=== PATIENT | female | born 1930 | race African-American/Black ===

== ENCOUNTER 2020-06-04 23:30 | Observation (INO) | payer MEDICARE ==
[2020-06-05 00:27] LABS: ABSOLUTE BASOPHILS # (AUTO) 0.1 10^3/uL (0.0-0.2); ABSOLUTE EOSINOPHILS # (AUTO) 0.1 10^3/uL (0.0-0.6); ABSOLUTE LYMPHOCYTES (AUTO) 1.4 10^3/uL (0.5-4.7); ABSOLUTE MONOCYTES (AUTO) 0.7 10^3/uL (0.1-1.4); ABSOLUTE NEUT (AUTO) 4.2 10^3/uL (1.7-8.2); BASOPHILS % (AUTO) 1.3 % (0-2); HEMATOCRIT 38.5 % (36.0-47.0); HEMOGLOBIN 12.4 g/dL (12.0-15.5); LYMPHOCYTES % (AUTO) 22.2 % (13-45); MEAN CORPUSCULAR HEMOGLOBIN 27.1 pg (27.0-33.4); MEAN CORPUSCULAR HGB CONC 32.3 g/dL (32.0-36.0); MEAN CORPUSCULAR VOLUME 84 fl (80-97); MONOCYTES % (AUTO) 10.3 % (3-13); PLATELET COUNT 348 10^3/uL (150-450); RED BLOOD COUNT 4.59 10^6/uL (3.72-5.28); RED CELL DISTRIBUTION WIDTH 13.9 % (11.5-14.0); SEGMENTED NEUTROPHILS % (AUTO) 65.2 % (42-78); TOTAL CELLS COUNTED % (AUTO) 100 %; WHITE BLOOD COUNT 6.4 10^3/uL (4.0-10.5)
[2020-06-05 00:48] LABS: ALBUMIN 3.6 g/dL (3.5-5.0); ALKALINE PHOSPHATASE 75 U/L (38-126); ANION GAP 11 (5-19); ASPARTATE AMINO TRANSFERASE 21 U/L (14-36); BILIRUBIN,DIRECT 0.4 mg/dL (0.0-0.4); BILIRUBIN,TOTAL 0.5 mg/dL (0.2-1.3); BLOOD UREA NITROGEN 32 mg/dL (7-20); CALCIUM 9.5 mg/dL (8.4-10.2); CARBON DIOXIDE 29 mmol/L (22-30); CHLORIDE 105 mmol/L (98-107); GLUCOSE 104 mg/dL (75-110); POTASSIUM 4.4 mmol/L (3.6-5.0); TOTAL PROTEIN 6.7 g/dL (6.3-8.2)
[2020-06-05 00:49] LABS: ALCOHOL < 10 mg/dL (NONE DETECTED)
[2020-06-05] MEDS ORDERED: NORMAL SALINE 1000 ML 1,000 ML IV ONE (01:16)
--- NOTE | 2020-06-05 01:32 | RADIOLOGY REPORT (SQ) ---
EXAM DESCRIPTION: CT HEAD WITHOUT IV CONTRAST COMPLETED DATE/TME: 06/05/2020 00:26 CLINICAL HISTORY: 89 years, Female, AMS COMPARISON: None. TECHNIQUE: Axial CT images of the brain were obtained without contrast. Sagittal and coronal reformats were performed. [facility] 945 Images stored on PACS. All CT scanners at this facility use dose modulation, iterative reconstruction, and/or weight based dosing when appropriate to reduce radiation dose to as low as reasonably achievable (ALARA). [facility]: Dose Right [facility]: CareDose [facility]: Dose Right [facility]: Teradose 4D [facility]: [employer] Technologies LIMITATIONS: None. FINDINGS: There is no acute cortical infarct, hemorrhage, mass, edema, hydrocephalus, or extra-axial fluid collection. There is diffuse cerebral atrophy with periventricular and deep white matter chronic microvascular changes. Calcifications of the bilateral basal ganglia and dentate nuclei are noted. The paranasal sinuses and mastoid air cells are clear. There is no acute fracture. IMPRESSION: No acute intracranial abnormality. 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 TECHNICAL DOCUMENTATION: Quality ID # 436: Final reports with documentation of one or more dose reduction techniques (e.g., Automated exposure control, adjustment of the mA and/or kV according to patient size, use of iterative reconstruction technique) copyright 2011 [employer]- All Rights Reserved
--- NOTE | 2020-06-05 01:34 | RADIOLOGY REPORT (SQ) ---
EXAM DESCRIPTION: XR CHEST 1 VIEW COMPLETED DATE/TME: 06/05/2020 00:26 CLINICAL HISTORY: 89 years, Female, AMS COMPARISON: None. NUMBER OF VIEWS: TECHNIQUE: LIMITATIONS: None. FINDINGS: No evidence of pulmonary infiltrate or pleural effusion. The heart and mediastinum are unremarkable. Pulmonary vascularity appears normal. There are atherosclerotic changes and tortuosity of the thoracic aorta. There is a left-sided pacemaker. IMPRESSION: No acute finding. copyright 2010 [employer]- All Rights Reserved
--- NOTE | 2020-06-05 01:44 | ER Document Report ---
ED General - General Chief Complaint: Altered Mental Status Stated Complaint: AMS Time Seen by Provider: 06/05/20 00:14 - HPI Onset: Just prior to arrival Onset/Duration: Sudden Associated symptoms: Vomiting Exacerbated by: Denies Relieved by: Denies Notes: Patient is an 89-year-old female with a past medical history of dementia who presents for altered mental status. She is with her iiftwqdn-mr-alu. Twoxrbvi-ai-mnx provides the history as patient has dementia. She states that patient was watching TV. They went to get her up and found that she was unresponsive. Patient then had an episode of vomiting. EMS arrived and patient was acting appropriately. In the ambulance, patient again had an episode of unresponsiveness with a blood pressure in the 70s. They gave her a 300 cc bolus of fluid and she improved. She denies any history of illnesses. No cough or fevers. - Related Data Allergies/Adverse Reactions: statins Allergy (Uncoded 06/05/20 01:52) Home Medications: ASA, Atenolol, Loratadine, NTG, Ezetimibe Past Medical History - General Information source: Patient - Social History Smoking Status: Never Smoker Family History: Reviewed & Not Pertinent Patient has homicidal ideation: No - Past Medical History Cardiac Medical History: Reports: Hx Hypercholesterolemia, Hx Hypertension Past Surgical History: Reports: Hx Cardiac Surgery - pacemaker Review of Systems - Review of Systems -: Yes ROS unobtainable due to patient's medical condition Constitutional: denies: Chills, Fever, Weakness Respiratory: denies: Cough Gastrointestinal: Vomiting. denies: Abdominal pain Genitourinary: No symptoms reported Skin: No symptoms reported Physical Exam - Vital signs Vitals: Temp Pulse Resp BP Pulse Ox 97.6 F 76 18 161/60 H 98 06/04/20 23:50 06/04/20 23:50 06/04/20 23:50 06/04/20 23:50 06/04/20 23:50 - Notes Notes: VITAL SIGNS: Within normal limits. GENERAL: No acute distress, non-toxic appearance. HEAD: Normal with no signs of head trauma. EYES: EOMI, conjunctiva normal, no discharge. EARS: Hearing grossly intact. NOSE: Normal. NECK: Normal range of motion, no tenderness, supple, no lymphadenopathy, No adenopathy, no JVD. CHEST: Clear breath sounds bilaterally. No wheezes, rales, or rhonchi. CARDIAC: Regular rate and rhythm. S1 and S2, without murmurs, gallops, or rubs. VASCULAR: No Edema. Peripheral pulses normal and equal in all extremities. ABDOMEN: Normal and soft with no tenderness, no masses or pulsatile masses. GENITOURINARY: Normal, No tenderness LYMPATHTIC: No lymphadenopathy noted. MUSCULOSKELETAL: Good range of motion of all major joints. Extremities without clubbing, cyanosis or edema. NEUROLOGICAL: Baseline dementia. No focal sensory or strength deficits. Speech normal. Follows commands appropriately. PSYCHIATRIC: Normal Affect, judgement and mood. SKIN: Normal appearance with no rashes or lesions. Course - Re-evaluation Re-evalutation: 06/05/20 02:43 Patient had 2 episodes of unresponsiveness tonight. Her work-up here so far is unremarkable. Urinalysis is pending. Patient has been appropriate in the ED with normal blood pressures. However, I am concerned that she had these 2 episodes of unresponsiveness. I discussed this with the family and they are also concerned about taking her home. I will discuss with hospitalist for observation and possible further work-up. - Vital Signs Vital signs: Temp Pulse Resp BP Pulse Ox 97.3 F 66 17 192/61 H 99 06/06/20 00:23 06/06/20 01:58 06/06/20 00:23 06/06/20 00:23 06/06/20 00:23 - Laboratory Result Diagrams: 06/04/20 23:50 06/04/20 23:50 Laboratory results interpreted by me: 06/04/20 06/05/20 23:50 02:10 BUN 32 H Creatinine 1.66 H Est GFR ( Amer) 35 L Est GFR (MDRD) Non-Af 29 L Urine Urobilinogen 4.0 H Ur Leukocyte Esterase SMALL H - Diagnostic Test Radiology reviewed: Image reviewed, Reports reviewed - EKG Interpretation by Me Additional EKG results interpreted by me: 06/05/20 01:50 Atrial paced complexes. QTc 444. No acute ST changes. No previous EKG available for comparison. Discharge - Discharge Clinical Impression: Transient hypotension Altered mental status Qualifiers: Altered mental status type: unspecified Qualified Code(s): R41.82 - Altered mental status, unspecified Condition: Stable Disposition: ADMITTED OBSERVATION Admitting Provider: [facility] Unit Admitted: Medical Floor
[2020-06-05 02:45] LABS: URINE AMPHETAMINES SCREEN NEGATIVE; URINE BARBITURATES SCREEN NEGATIVE; URINE BENZODIAZEPINES SCREEN NEGATIVE; URINE COCAINE SCREEN NEGATIVE; URINE MARIJUANA (THC) SCREEN NEGATIVE; URINE METHADONE SCREEN NEGATIVE; URINE PHENCYCLIDINE SCREEN NEGATIVE
[2020-06-05 02:55] LABS: APPEARANCE,URINE CLOUDY; BILIRUBIN,URINE NEGATIVE (NEGATIVE); COLOR,URINE AMBER; GLUCOSE, URINE NEGATIVE (NEGATIVE); KETONES,URINE NEGATIVE (NEGATIVE); LEUKOCYTE ESTERASE,URINE SMALL (NEGATIVE); NITRITE,URINE NEGATIVE (NEGATIVE); PROTEIN,URINE NEGATIVE (NEGATIVE); URINE SPECIFIC GRAVITY 1.014
[2020-06-05] MEDS ORDERED: ACETAMINOPHEN 325 MG TABLET PO PRN (04:06)
[2020-06-05] MEDS ORDERED: DEXTROSE 5%-LACTATED RINGERS 1,000 ML IV PRN (04:06)
--- NOTE | 2020-06-05 06:09 | PDOC H&P ---
History of Present Illness Admission Date/PCP: 06/05/20 03:33 NAINA VASQUEZ MD Patient complains of: Hypertension, unresponsiveness History of Present Illness: MYESHA JIMENEZ is a 89 year old female, past medical history of pacemaker insertion 8 years prior, hyperlipidemia, dementia who was sent to the ED due to hypotension and episode of unresponsiveness. Patient was apparently well until about 6 hours prior to admission when she was noted to be unresponsive while sitting on her recliner. The patient and her nkfeeoee-lj-ujy was watching TV when her lsktsxsd-ny-hgl noticed that she was slumped to her side, when she attempted to wake her up she was unresponsive not opening her eyes. But she was breathing spontaneously. The daughter did not mention any signs of seizures like bowel or bladder incontinence, shaking or stiffness of extremities. EMS was called and by the time they saw her she was already awake, had one episode of vomiting. Per EMS her blood pressure was low and she was given IV fluids. In the ambulance patient again had an episode of unresponsiveness with blood pressure of 70 which improved with 300 cc bolus of IV fluids. Her sgeqmpci-tf-sdl denies any recent illness, no diarrhea, no nausea vomiting ,no painful urination, no fever In the ED, her blood pressure was noted to be 138/51, heart rate of 66. According to her npitpweo-fo-njr her mental status is back at her baseline. EKG showed paced rhythm, troponins negative. CBC and CMP unremarkable. She was then admitted for observation for further evaluation. . Past Medical History Cardiac Medical History: Reports: Hyperlipidema, Hypertension Pulmonary Medical History: Reports: None EENT Medical History: Reports: None Neurological Medical History: Reports: None Neurological History Note: dementia Endocrine Medical History: Reports: None Renal/ Medical History: Reports: None Malignancy Medical History: Reports: None GI Medical History: Reports: None Musculoskeltal Medical History: Reports: None Skin Medical History: Reports: None Psychiatric Medical History: Reports: None Traumatic Medical History: Reports: None Hematology: Reports: None Social History Information Source: Relative Lives with: Family Smoking Status: Never Smoker - Advance Directive Resuscitation Status: Full Code Family History Family History: Reviewed & Not Pertinent Parental Family History Reviewed: Yes Children Family History Reviewed: Yes Sibling(s) Family History Reviewed.: Yes Medication/Allergy Home Medications: Aspirin 81 mg PO DAILY 06/05/20 Atenolol [Tenormin] 50 mg PO DAILY 06/05/20 Ezetimibe 10 mg PO DAILY 06/05/20 Loratadine [Allergy Relief] 10 mg PO DAILY 06/05/20 Allergies/Adverse Reactions: statins Allergy (Uncoded 06/05/20 01:52) Review of Systems Constitutional: PRESENT: as per HPI Eyes: ABSENT: visual disturbances Nose, Mouth, and Throat: ABSENT: headache(s), sore throat Cardiovascular: ABSENT: chest pain, dyspnea on exertion, orthropnea, pal pitations Gastrointestinal: ABSENT: abdominal pain, diarrhea, hematemesis, melena, nausea Musculoskeletal: ABSENT: joint swelling Neurological: PRESENT: confusion. ABSENT: abnormal movements, focal weakness, frequent falls Psychiatric: ABSENT: depression, hallucinations Physical Exam Vital Signs: Temp Pulse Resp BP Pulse Ox 98 F 76 16 156/48 H 100 06/05/20 04:10 06/04/20 23:50 06/05/20 04:01 06/05/20 04:01 06/05/20 04:01 Intake & Output 06/03/20 06/04/20 06/05/20 06:59 06:59 06:59 Intake Total 1000 Balance 1000 Weight 68.039 kg General appearance: PRESENT: no acute distress, cooperative Head exam: PRESENT: atraumatic, normocephalic Eye exam: PRESENT: EOMI, PERRLA. ABSENT: nystagmus Mouth exam: PRESENT: moist Neck exam: PRESENT: full ROM Respiratory exam: PRESENT: clear to auscultation kenneth, symmetrical, unlabored. ABSENT: rales, tachypnea Cardiovascular exam: PRESENT: RRR, +S1, +S2 Pulses: PRESENT: normal radial pulses GI/Abdominal exam: PRESENT: normal bowel sounds, soft. ABSENT: rebound, tenderness Extremities exam: ABSENT: joint swelling, +2 edema Musculoskeletal exam: PRESENT: full ROM Neurological exam: PRESENT: alert, awake, oriented to person, other - Baseline dementia Psychiatric exam: PRESENT: normal mood Results Laboratory Results: 06/04/20 23:50 06/04/20 23:50 06/04/20 06/04/20 06/05/20 23:50 23:50 02:10 WBC 6.4 RBC 4.59 Hgb 12.4 Hct 38.5 MCV 84 MCH 27.1 MCHC 32.3 RDW 13.9 Plt Count 348 Seg Neutrophils % 65.2 Sodium 144.7 Potassium 4.4 Chloride 105 Carbon Dioxide 29 Anion Gap 11 BUN 32 H Creatinine 1.66 H Est GFR ( Amer) 35 L Glucose 104 Calcium 9.5 Magnesium 1.7 Total Bilirubin 0.5 AST 21 Alkaline Phosphatase 75 Total Protein 6.7 Albumin 3.6 Urine Color SAMIRA Urine Appearance CLOUDY Urine pH 5.0 Ur Specific [employer] 1.014 Urine Protein NEGATIVE Urine Glucose (UA) NEGATIVE Urine Ketones NEGATIVE Urine Blood NEGATIVE Urine Nitrite NEGATIVE Ur Leukocyte Esterase SMALL H Urine WBC (Auto) 34 Urine RBC (Auto) 1 06/04/20 23:50 Troponin I < 0.012 Impressions: Chest X-Ray 06/05/20 00:26 IMPRESSION: No acute finding. copyright 2010 [employer]- All Rights Reserved Head CT 06/05/20 00:26 IMPRESSION: No acute intracranial abnormality. 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 TECHNICAL DOCUMENTATION: Quality ID # 436: Final reports with documentation of one or more dose reduction techniques (e.g., Automated exposure control, adjustment of the mA and/or kV according to patient size, use of iterative reconstruction technique) copyright 2010 [employer]- All Rights Reserved Assessment and Plan - Diagnosis (1) Transient hypotension Is this a current diagnosis for this admission?: Yes Plan: -By EMS at home and during transit, per record systolic of 70s, one episode of vomiting -Blood pressure in the ED upon arrival 138/51 status post 1 L of normal saline -Likely from dehydration, or cardiac in origin (she has a pacemaker) -Less likely septic since she is not tachycardic not tachypneic her mental status is back to her baseline WBC count normal -will admit for observation and telemetry -Ultrasound carotid, venous Doppler for DVT rule out. -will need pacemaker interrogation (2) Acute encephalopathy Is this a current diagnosis for this admission?: Yes Plan: -Had one episode of unresponsiveness at home -No overt signs of seizures, blood glucose was normal per EMS -CBC and CMP unremarkable -CT head normal -We will monitor for recurrence -admit for observation (3) BILLY (acute kidney injury) Is this a current diagnosis for this admission?: Yes Plan: - crea 1.66, unknown baseline -Per rillgejd-qh-gji she has not been drinking that well recently -We will repeat CMP in the morning -Continue IV fluids (4) Dementia Qualifiers: Dementia type: unspecified type Dementia behavioral disturbance: without behavioral disturbance Qualified Code(s): F03.90 - Unspecified dementia without behavioral disturbance Is this a current diagnosis for this admission?: Yes Plan: -Has history of dementia oriented to self -Frequent reorientation, fall precaution (5) Pacemaker Is this a current diagnosis for this admission?: Yes Plan: - PM placed about 8 years ago unknown reason -EKG paced rhythm - she is on aspirin and atenolol unclear if she has a history of CAD (6) HLD (hyperlipidemia) Qualifiers: Hyperlipidemia type: unspecified Qualified Code(s): E78.5 - Hyperlipidemia, unspecified Is this a current diagnosis for this admission?: Yes Plan: - on ezetemibe - Plan Summary Summary: Patient is an 89-year-old female with history of pacemaker insertion dementia and hyperlipidemia who was sent to the ED due to episode of unresponsiveness and hypotension at home. Work-up in the ED has been unremarkable so far with normal CBC mildly elevated creatinine and no UTI. Will admit for observation and telemetry, ultrasound carotid venous Doppler of lower extremity ordered - Time Time Spent with patient: 35 or more minutes Medications reviewed and adjusted accordingly: Yes Anticipated Discharge Disposition: Home, Self Care Anticipated Discharge Timeframe: within 48 hours
[2020-06-05] MEDS ORDERED: EZETIMIBE 10 MG TABLET PO SCH (10:00)
[2020-06-05] MEDS ORDERED: ASPIRIN 81 MG TABLET, CHEWABLE PO SCH (10:00)
[2020-06-05] MEDS ORDERED: ATENOLOL 50 MG TABLET PO SCH (10:00)
[2020-06-05] MEDS: HEPARIN SOD (PORCINE) 5,000 UNIT/ML 1 ML VIAL SUBCUT SCH ×3 (11:21→22:38)
--- NOTE | 2020-06-05 12:38 | RADIOLOGY REPORT (SQ) ---
EXAM DESCRIPTION: VENOUS BILATERAL LOWER IMAGES COMPLETED DATE/TIME: 06/05/2020 11:50 am REASON FOR STUDY: r/o DVT COMPARISON: None. TECHNIQUE: Dynamic and static kingsley scale and color images acquired of both lower extremity venous sy stems. Selected spectral images acquired with additional compression and augmentation maneuvers. Imag es stored on PACS. LIMITATIONS: The examination is somewhat limited. The patient was uncooperative during the examinat ion. FINDINGS: RIGHT LEG COMMON FEMORAL AND FEMORAL: Normal phasicity, compression and augmentation. No visualized echogenic m aterial on kingsley scale. No defects on color images. POPLITEAL: Normal compression and augmentation. No visualized echogenic material on kingsley scale. No de fects on color images. CALF VESSELS: Normal compression and augmentation. No visualized echogenic material on kingsley scale. No defects on color image. GSV AND SSV: Normal compression. No visualized echogenic material on kingsley scale. No defects on color images. ANY DEEP VENOUS INSUFFICIENCY: Not evaluated. ANY EVIDENCE OF POPLITEAL CYST: No. OTHER: No other significant finding. LEFT LEG COMMON FEMORAL AND FEMORAL: Normal phasicity, compression and augmentation. No visualized echogenic m aterial on kingsley scale. No defects on color images. POPLITEAL: Normal compression and augmentation. No visualized echogenic material on kingsley scale. No de fects on color images. CALF VESSELS: Normal compression and augmentation. No visualized echogenic material on kingsley scale. No defects on color images. GSV AND SSV: Normal compression. No visualized echogenic material on kingsley scale. No defects on color images. ANY DEEP VENOUS INSUFFICIENCY: Not evaluated. ANY EVIDENCE POPLITEAL CYST: No. OTHER: No other significant finding. IMPRESSION: 1. NO EVIDENCE DVT OR SVT IN EITHER LEG. TECHNICAL DOCUMENTATION: JOB ID: [id number] 2010 [employer]- All Rights Reserved Reading location - IP/workstation name: [email or web address]
--- NOTE | 2020-06-05 13:25 | RADIOLOGY REPORT (SQ) ---
EXAM DESCRIPTION: CAROTID DOPPLER IMAGES COMPLETED DATE/TIME: 06/05/2020 11:50 am REASON FOR STUDY: loss of consciousness COMPARISON: None. TECHNIQUE: Grayscale ultrasound, Doppler velocity and spectra, and color Doppler images acquired of the extra-cranial carotid and vertebral arteries. Images stored on PACS. LIMITATIONS: Patient was unable to completely cooperate. FINDINGS: RIGHT CAROTID CCA Velocities: Within normal limits. ICA Velocities Peak systolic 144 cm/s. End diastolic 20 cm/s. Proximal ICA/CCA peak systolic ratio 2.02. There is plaque in the carotid bulb. The right ICA is tortuous. LEFT CAROTID CCA Velocities: Within normal limits. ICA Velocities Peak systolic 124 cm/s. End diastolic 22 cm/s. Proximal ICA/CCA peak systolic ratio 1.56. There is plaque in the bulb and proximal ICA. VERTEBRAL ARTERIES: Antegrade flow. Normal waveforms. SUBCLAVIAN ARTERIES: No finding. OTHER: No other significant finding. IMPRESSION: Atherosclerotic changes bilaterally with no hemodynamically significant stenosis. COMMENT: Quality ID #[id number]: Velocity criteria are extrapolated from the diameter data as defined by t he Society of Radiologists in Ultrasound Consensus Conference. Radiology 2003: 229; 340-346. TECHNICAL DOCUMENTATION: JOB ID: [id number] 2010 [employer]- All Rights Reserved Reading location - IP/workstation name: [email or web address]
--- NOTE | 2020-06-05 16:46 | EKG REPORT ---
SEVERITY:- ABNORMAL ECG - ATRIAL-PACED COMPLEXES PROBABLE LEFT ATRIAL ABNORMALITY LEFT VENTRICULAR HYPERTROPHY : Confirmed by: Srini Thompson MD 05-Jun-2020 16:45:49
[2020-06-06] MEDS: HEPARIN SOD (PORCINE) 5,000 UNIT/ML 1 ML VIAL SUBCUT SCH (05:33)
[2020-06-06 06:10] LABS: ABSOLUTE BASOPHILS # (AUTO) 0.1 10^3/uL (0.0-0.2); ABSOLUTE EOSINOPHILS # (AUTO) 0.1 10^3/uL (0.0-0.6); ABSOLUTE LYMPHOCYTES (AUTO) 2.2 10^3/uL (0.5-4.7); ABSOLUTE MONOCYTES (AUTO) 0.6 10^3/uL (0.1-1.4); BASOPHILS % (AUTO) 1.2 % (0-2); HEMOGLOBIN 12.4 g/dL (12.0-15.5); LYMPHOCYTES % (AUTO) 31.5 % (13-45); MEAN CORPUSCULAR HEMOGLOBIN 27.5 pg (27.0-33.4); MEAN CORPUSCULAR HGB CONC 33.5 g/dL (32.0-36.0); MEAN CORPUSCULAR VOLUME 82 fl (80-97); MONOCYTES % (AUTO) 8.4 % (3-13); PLATELET COUNT 286 10^3/uL (150-450); RED CELL DISTRIBUTION WIDTH 13.9 % (11.5-14.0); SEGMENTED NEUTROPHILS % (AUTO) 56.9 % (42-78); TOTAL CELLS COUNTED % (AUTO) 100 %; WHITE BLOOD COUNT 7.1 10^3/uL (4.0-10.5)
[2020-06-06 06:25] LABS: ALBUMIN 3.4 g/dL (3.5-5.0); ALKALINE PHOSPHATASE 75 U/L (38-126); ANION GAP 9 (5-19); ASPARTATE AMINO TRANSFERASE 22 U/L (14-36); BILIRUBIN,DIRECT 0.3 mg/dL (0.0-0.4); BILIRUBIN,TOTAL 0.4 mg/dL (0.2-1.3); BLOOD UREA NITROGEN 27 mg/dL (7-20); CALCIUM 9.3 mg/dL (8.4-10.2); CARBON DIOXIDE 25 mmol/L (22-30); CHLORIDE 109 mmol/L (98-107); GLUCOSE 97 mg/dL (75-110); POTASSIUM 4.7 mmol/L (3.6-5.0); TOTAL PROTEIN 6.3 g/dL (6.3-8.2)
[2020-06-06 09:22] VITALS: BP 142/84
--- NOTE | 2020-06-06 16:07 | PDOC DISCHARGE SUMMARY ---
Impression - Admit/DC Date/PCP Admission Date/Primary Care Provider: 06/05/20 03:33 NAINA VASQUEZ MD Discharge Date: 06/06/20 - Discharge Diagnosis (1) Acute encephalopathy Is this a current diagnosis for this admission?: Yes (2) Transient hypotension Is this a current diagnosis for this admission?: Yes (3) BILLY (acute kidney injury) Is this a current diagnosis for this admission?: Yes - Assessment Summary: Ms. Jimenez is an 89-year-old female with history of HTN, HLD who was sent to the ED due to an episode of AMS in the setting of hypotension at home. Work-up was unremarkable for evidence of infection. Her home BP medication was held and she received gentle IVF hydration. Her BP has normalized, BILLY resolved, and her AMS quickly resolved. She is now stable for discharge home with permanent discontinuation of her home antihypertensive therapy. - Additional Information Resuscitation Status: Full Code Discharge Diet: Regular Discharge Activity: Activity As Tolerated Referrals: NAINA VASQUEZ MD [Primary Care Provider] - Follow up as needed (HTN AND UNRESPONSIVE CALL PATIENT WITH FOLLOW UP [id number]) Home Medications: Aspirin [Ecotrin 81 mg EC Tablet] 81 mg PO DAILY 06/05/20 Ergocalciferol (Vitamin D2) [Drisdol 50,000 unit (1.25MG) Capsule] 50,000 unit PO .QWEEKLY 06/05/20 Ezetimibe 10 mg PO DAILY 06/05/20 Loratadine [Allergy Relief] 10 mg PO DAILY 06/05/20 History of Present Illiness History of Present Illness: MYESHA JIMENEZ is a 89 year old female Physical Exam Vital Signs: Temp Pulse Resp BP Pulse Ox 97.4 F 61 19 142/84 H 100 06/06/20 10:00 06/06/20 09:19 06/06/20 09:19 06/06/20 09:19 06/06/20 09:19 Intake & Output 06/05/20 06/06/20 06/07/20 06:59 06:59 06:59 Intake Total 1000 607 Balance 1000 607 Weight 68.039 kg 78.1 kg Results Laboratory Results: WBC 7.1 10^3/uL (4.0-10.5) 06/06/20 05:44 RBC 4.50 10^6/uL (3.72-5.28) 06/06/20 05:44 Hgb 12.4 g/dL (12.0-15.5) 06/06/20 05:44 Hct 37.0 % (36.0-47.0) 06/06/20 05:44 MCV 82 fl (80-97) 06/06/20 05:44 MCH 27.5 pg (27.0-33.4) 06/06/20 05:44 MCHC 33.5 g/dL (32.0-36.0) 06/06/20 05:44 RDW 13.9 % (11.5-14.0) 06/06/20 05:44 Plt Count 286 10^3/uL (150-450) 06/06/20 05:44 Lymph % (Auto) 31.5 % (13-45) 06/06/20 05:44 [place] % (Auto) 8.4 % (3-13) 06/06/20 05:44 Eos % (Auto) 2.0 % (0-6) 06/06/20 05:44 Baso % (Auto) 1.2 % (0-2) 06/06/20 05:44 Absolute Neuts (auto) 4.0 10^3/uL (1.7-8.2) 06/06/20 05:44 Absolute Lymphs (auto) 2.2 10^3/uL (0.5-4.7) 06/06/20 05:44 Absolute Monos (auto) 0.6 10^3/uL (0.1-1.4) 06/06/20 05:44 Absolute Eos (auto) 0.1 10^3/uL (0.0-0.6) 06/06/20 05:44 Absolute Basos (auto) 0.1 10^3/uL (0.0-0.2) 06/06/20 05:44 Seg Neutrophils % 56.9 % (42-78) 06/06/20 05:44 Sodium 143.0 mmol/L (137-145) 06/06/20 05:44 Potassium 4.7 mmol/L (3.6-5.0) 06/06/20 05:44 Chloride 109 mmol/L (98-107) H 06/06/20 05:44 Carbon Dioxide 25 mmol/L (22-30) 06/06/20 05:44 Anion Gap 9 (5-19) 06/06/20 05:44 BUN 27 mg/dL (7-20) H 06/06/20 05:44 Creatinine 1.05 mg/dL (0.52-1.25) 06/06/20 05:44 Est GFR ( Amer) > 60 (>60) 06/06/20 05:44 Est GFR (MDRD) Non-Af 49 (>60) L 06/06/20 05:44 Glucose 97 mg/dL (75-110) 06/06/20 05:44 POC Glucose 88 mg/dL (70-110) 06/06/20 06:41 Lactic Acid 1.1 mmol/L (0.7-2.1) 06/05/20 07:30 Calcium 9.3 mg/dL (8.4-10.2) 06/06/20 05:44 Magnesium 1.7 mg/dL (1.6-2.3) 06/04/20 23:50 Total Bilirubin 0.4 mg/dL (0.2-1.3) 06/06/20 05:44 Direct Bilirubin 0.3 mg/dL (0.0-0.4) 06/06/20 05:44 Neonat Total Bilirubin Not Reportable 06/06/20 05:44 Neonat Direct Bilirubin Not Reportable 06/06/20 05:44 Neonat Indirect Bili Not Reportable 06/06/20 05:44 AST 22 U/L (14-36) 06/06/20 05:44 ALT 10 U/L (<35) 06/06/20 05:44 Alkaline Phosphatase 75 U/L (38-126) 06/06/20 05:44 Troponin I < 0.012 ng/mL 06/04/20 23:50 Total Protein 6.3 g/dL (6.3-8.2) 06/06/20 05:44 Albumin 3.4 g/dL (3.5-5.0) L 06/06/20 05:44 TSH 2.65 uIU/mL (0.47-4.68) 06/06/20 05:44 Urine Color SAMIRA 06/05/20 02:10 Urine Appearance CLOUDY 06/05/20 02:10 Urine pH 5.0 (5.0-9.0) 06/05/20 02:10 Ur Specific [place] 1.014 06/05/20 02:10 Urine Protein NEGATIVE mg/dL (NEGATIVE) 06/05/20 02:10 Urine Glucose (UA) NEGATIVE mg/dL (NEGATIVE) 06/05/20 02:10 Urine Ketones NEGATIVE mg/dL (NEGATIVE) 06/05/20 02:10 Urine Blood NEGATIVE (NEGATIVE) 06/05/20 02:10 Urine Nitrite NEGATIVE (NEGATIVE) 06/05/20 02:10 Urine Bilirubin NEGATIVE (NEGATIVE) 06/05/20 02:10 Urine Urobilinogen 4.0 mg/dL (<2.0) H 06/05/20 02:10 Ur Leukocyte Esterase SMALL (NEGATIVE) H 06/05/20 02:10 Urine WBC (Auto) 34 /HPF 06/05/20 02:10 Urine RBC (Auto) 1 /HPF 06/05/20 02:10 U Hyaline Cast (Auto) 13 /LPF 06/05/20 02:10 Urine Bacteria (Auto) 3+ /HPF 06/05/20 02:10 Squamous Epi Cells Auto <1 /HPF 06/05/20 02:10 Urine Mucus (Auto) OCC /LPF 06/05/20 02:10 Urine Ascorbic Acid NEGATIVE (NEGATIVE) 06/05/20 02:10 Urine Opiates Screen NEGATIVE 06/05/20 02:10 Urine Methadone Screen NEGATIVE 06/05/20 02:10 Ur Barbiturates Screen NEGATIVE 06/05/20 02:10 Ur Phencyclidine Scrn NEGATIVE 06/05/20 02:10 Ur Amphetamines Screen NEGATIVE 06/05/20 02:10 U Benzodiazepines Scrn NEGATIVE 06/05/20 02:10 Urine Cocaine Screen NEGATIVE 06/05/20 02:10 U Marijuana (THC) Screen NEGATIVE 06/05/20 02:10 Serum Alcohol < 10 mg/dL (NONE DETECTED) 06/04/20 23:50 06/04/20 23:50 Troponin I < 0.012 Impressions: Carotid Doppler Study 06/05/20 00:00 IMPRESSION: Atherosclerotic changes bilaterally with no hemodynamically significant stenosis. Venous Doppler Study 06/05/20 00:00 IMPRESSION: 1. NO EVIDENCE DVT OR SVT IN EITHER LEG. Chest X-Ray 06/05/20 00:26 IMPRESSION: No acute finding. copyright 2011 [employer]- All Rights Reserved Head CT 06/05/20 00:26 IMPRESSION: No acute intracranial abnormality. 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 TECHNICAL DOCUMENTATION: Quality ID # 436: Final reports with documentation of one or more dose reduction techniques (e.g., Automated exposure control, adjustment of the mA and/or kV according to patient size, use of iterative reconstruction technique) copyright 2011 [employer]- All Rights Reserved Stroke Is this a Stroke Patient?: No Acute Heart Failure Is this a Heart Failure Patient?: No
--- NOTE | 2020-06-06 16:12 | ADVANCED CARE ---
- Diagnosis (1) Advanced dementia Diagnosis Current: Yes (2) Frail elderly Diagnosis Current: Yes Attendance: Patricio Barron (son) [phone] Resuscitation Status: Do Not Resuscitate Discussion: Ms. Juani Barron is a frail 89 year old woman with advanced dementia. Her son, Patricio, is her medical POA. We discussed goals of care, which include maximizing Ms. Barron's comfort and independence as much as possible. Her family would like to change her code status to DNR/DNI, which I think is appropriate given her age and dementia. Time Spent: >20 minutes
== END 2020-06-06 10:45 | disposition home or self-care (01) ==
LOC: ER 23:30 → INTOOBSV 06-05 03:33 → EH 06-05 03:33 → 4N 06-05 14:17
PROVIDERS: ADMIT Internal Medicine; ATTEND Hospitalist
DX: G93.40 Encephalopathy, unspecified (principal); I95.89 Other hypotension; N17.9 Acute kidney failure, unspecified; E78.5 Hyperlipidemia, unspecified; F03.90 Unspecified dementia, unspecified severity, without behavioral disturbance, psychotic disturbance, mood disturbance, and anxiety; Z86.79 Personal history of other diseases of the circulatory system; Z79.82 Long term (current) use of aspirin; Z79.899 Other long term (current) drug therapy; Z95.0 Presence of cardiac pacemaker
CPT/HCPCS: 93005; 99281; 96372; 96360; 96361; 36415 ×2; 82962 ×2; 80307 ×2; 83605; 83735; 84443; 85025 ×2; 80053 ×2; 81001; 84484; 93970; 93880; 71045; 70450; 93010; G0378 ×3; A9270 ×2; J1644 ×2; J7121; J7030